=== PATIENT | female | born 1960 | race Caucasian/White ===

== ENCOUNTER 2016-07-07 12:55 | Day surgery (SDC) | payer MEDICAID ==
[2016-07-07] MEDS ORDERED: LIDOCAINE 1% 5 ML SDV ONE (13:12)
[2016-07-07] MEDS ORDERED: NS 500 ML IV SCH (13:15)
[2016-07-07] MEDS ORDERED: LIDOCAINE 1% 2 ML INJ ID PRN (13:15)
[2016-07-07] MEDS ORDERED: MIDAZOLAM 2 MG/2 ML VIAL ONE ×2 (13:54→14:12)
[2016-07-07] MEDS ORDERED: fentaNYL 100 MCG/2 ML INJ ONE (13:54)
--- NOTE | 2016-07-07 15:14 | GPN ---
[f rep st] PROCEDURE NOTE PROCEDURE: Gastroscopy with biopsy and colonoscopy. INDICATIONS: The patient is a 56-year-old female who presents for both routine colon cancer screeni and for a gastroscopy to evaluate for reflux. She is status post a M[place] fundoplication approxi mately 10 years ago. She has had recurrence of reflux symptoms and has been dependent on proton pum p inhibitors. DESCRIPTION OF PROCEDURE: After proper consent was obtained, the patient was placed in the left lat eral decubitus position, and received a total of 8 mg intravenous Versed, 100 mcg intravenous fentan yl. Video gastroscope was introduced through the mouth, down the esophagus, into the stomach, past the p ylorus, into the duodenum. Findings as follows: 1. An irregular Z-line at 34 cm. Biopsies were taken to rule out Lamb's. 2. Hiatal hernia sac, approximately 4 cm. 3. On retroversion, there was no evidence of any active Mulugeta wrap effect. 4. Antrum appears normal. Biopsies were taken to rule out H pylori. 5. Duodenum appears normal. At this point, the instrument was removed. The patient was repositioned, and the video colonoscope was introduced through the anus and rectum up the left colon across the transverse colon, then right colon, and the cecum. Findings as follows: 1. Mild left-sided diverticulosis. 2. No polyps, tumors or other lesions noted. 3. Ileocecal valve was identified and photographed. At this point, instrument was removed. Patient tolerated the procedure well, and was returned to [facility] recovery room in stable condition. RECOMMENDATION: 1. Patient should stay on her proton pump inhibitors and may need to consider repeat Mulugeta fundopl ication. 2. For colon cancer screening, next endoscopy in 10 years' time. /[id number]/MODL
== END 2016-07-07 15:15 | disposition home or self-care (01) ==
LOC: FSGY 12:55
PROVIDERS: ATTEND Internal Medicine Gastroenterology
PROC: 0DJD8ZZ Inspection of Lower Intestinal Tract, Via Natural or Artificial Opening Endoscopic (ICD-10-PCS; principal; 2016-07-07 14:00)
PROC: 0DB38ZX Excision of Lower Esophagus, Via Natural or Artificial Opening Endoscopic, Diagnostic (ICD-10-PCS; 2016-07-07 14:00)
DX: Z12.11 Encounter for screening for malignant neoplasm of colon (principal); K44.9 Diaphragmatic hernia without obstruction or gangrene; K91.89 Other postprocedural complications and disorders of digestive system; K21.9 Gastro-esophageal reflux disease without esophagitis; K22.9 Disease of esophagus, unspecified; K58.0 Irritable bowel syndrome with diarrhea; R10.10 Upper abdominal pain, unspecified; Z87.891 Personal history of nicotine dependence
CPT/HCPCS: J2250; J3010

== ENCOUNTER 2016-07-23 07:20 | Emergency (ER) | payer MEDICAID ==
[2016-07-23 07:25] VITALS: RESP 18
--- NOTE | 2016-07-23 07:49 | CPEKG ---
Heart Rate: 78 RR Interval: 769 P-R Interval: 208 QRSD Interval: 96 QT Interval: 376 QTC Interval: 429 P [place]: 56 QRS [place]: -45 T Wave [place]: 37 EKG Severity - OTHERWISE NORMAL ECG - EKG Impression: SINUS RHYTHM EKG Impression: VENTRICULAR PREMATURE COMPLEX EKG Impression: LEFT AXIS DEVIATION Electronically Signed By: Ninoska Villanueva 23-Jul-2016 13:18:13
[2016-07-23 07:56] LABS: % IMMATURE GRANULYOCYTES 0.2 % (0.0-1.1); ABSOLUTE IMMATURE GRANULOCYTES 0.01 10^3/uL (0.00-0.10); ADD DIFF? NO; ADD MORPH? NO; ADD SCAN? NO; ATYPICAL LYMPHOCYTE FLAG 0 (0-99); FRAGMENT RBC FLAG 0 (0-99); HEMATOCRIT 39.9 % (38.0-47.0); HEMOGLOBIN 13.8 g/dL (12.6-16.3); LEFT SHIFT FLG 0 (0-99); LIPEMIA HEMOLYSIS FLAG 90 (0-99); MEAN CELL HEMOGLOBIN 32.5 pg (27.9-34.1); MEAN CELL HEMOGLOBIN CONCENTR. 34.6 g/dL (32.4-36.7); MEAN CELL VOLUME 93.9 fL (81.5-99.8); MEAN PLATELET VOLUME 11.4 fL (8.7-11.7); PLATELET CLUMPS FLAG 0 (0-99); PLATELET COUNT 200 10^3/uL (150-400); RED BLOOD CELL COUNT 4.25 10^6/uL (4.18-5.33)
[2016-07-23 08:07] LABS: ANION GAP 10 mEq/L (8-16); CALCIUM 9.8 mg/dL (8.5-10.4); CARBON DIOXIDE 26 mEq/l (22-31); CHLORIDE 106 mEq/L (97-110); CREATININE 0.8 mg/dL (0.6-1.0); GLOMERULAR FILTRATION RATE > 60; GLUCOSE 85 mg/dL (70-100); SODIUM 142 mEq/L (134-144)
[2016-07-23 08:19] LABS: TROPONIN I < 0.012 ng/mL (0-0.034)
--- NOTE | 2016-07-23 08:25 | EDPHY ---
H & P Time Seen by Provider: 07/23/16 07:26 HPI/ROS: CHIEF COMPLAINT: Palpitations HISTORY OF PRESENT ILLNESS: 56-year-old female with a history of bronchospasm presents with palpitations. She has a history of PVCs and has intermittent palpitations related to the PVCs. Recently these episodes have increased in frequency. She had an upper respiratory infection 1 month ago and continues to have a dry cough. Associated with persistent chest tightness for 3 days, similar to prior asthma symptoms. She has an inhaler, but has been reluctant to use it because the inhaler increases the frequency of the PVCs. This morning she had an episode of left-sided mid back pain related to the cough, resolved now. No shortness of breath or fever. No exertional chest pain. REVIEW OF SYSTEMS: Constitutional: No fever, no chills Eyes: No visual changes ENT: No sore throat Respiratory: no shortness of breath Gastrointestinal: No nausea, no vomiting, no abdominal pain Genitourinary: no dysuria Musculoskeletal: No leg pain or swelling Skin: No rash Neurological: No headache, no weakness Psychiatric: No depression Past Medical/Surgical History: PVCs Bronchospasm related to a prior upper respiratory infection Social History: Smoking Status: Former smoker Physical Exam: General Appearance: Alert, pleasant Eyes: Pupils equal and round, no conjunctival pallor or injection ENT, Mouth: Mucous membranes moist Neck: Normal inspection Respiratory: Lungs are clear to auscultation, no wheezing Cardiovascular: Regular rate and rhythm, no murmur Gastrointestinal: Abdomen is soft and nontender Neurological: A&O, nonfocal, normal gait Skin: Warm and dry, no rash Extremities: Nontender, no pedal edema Psychiatric: Mood and affect normal Constitutional: Initial Vital Signs Temperature (C) 36.4 C 07/23/16 07:21 Heart Rate 90 07/23/16 07:21 Respiratory Rate 18 07/23/16 07:21 Blood Pressure 117/79 07/23/16 07:21 O2 Sat (%) 97 07/23/16 07:21 O2 Delivery Mode Room Air Allergies/Adverse Reactions: acetaminophen [From Percocet] Allergy (Verified 07/23/16 07:21) Vomiting oxycodone HCl [From Percocet] Allergy (Verified 07/23/16 07:21) Vomiting Home Medications: Medication Instructions Recorded Herbals/Supplements -Info Only 06/29/16 [facility] 06/29/16 Medical Decision Making - Diagnostics EKG Interpretation: EKG interpreted by me reveals normal sinus rhythm, rate 78, LAD, PVC, no ST or T segment changes. Imaging: Chest x-ray independently reviewed by me reveals no acute disease ED Course/Re-evaluation: This patient presents with atypical and prolonged (greater than 72 hrs) chest pain. Stat EKG reveals normal sinus rhythm, without evidence of ischemia. PVCs noted on the EKG and on cardiac monitoring. Patient is symptomatic with the PVCs. After careful consideration and evaluation, I find no evidence of acute coronary syndrome. The patient has no risk factors for coronary disease and normal studies. In addition, I feel that I can safely exclude pulmonary embolism, with normal vital signs, normal oxygen saturation and normal studies. In addition there is no evidence of pneumothorax, pneumonia, aortic dissection. Differential Diagnosis: This patient presents with atypical chest pain. After careful consideration and evaluation, I find no evidence of acute coronary syndrome. The patient has no risk factors for coronary disease, normal EKG and normal studies. In addition, I feel that I can safely exclude pulmonary embolism, with normal vital signs, normal oxygen saturation and normal studies. In addition there is no evidence of pneumothorax, pneumonia, aortic dissection. - Data Points Laboratory Results: Laboratory Results 07/23/16 07:40 07/23/16 07:40 Medications Given: Discontinued Medications Sodium Chloride (Ns) 1,000 mls @ 0 mls/hr IV ONCE ONE PRN Reason: Wide Open Stop: 07/23/16 08:29 Last Admin: 07/23/16 08:43 Dose: 1,000 mls Departure - Departure Disposition: Home, Routine, Self-Care Clinical Impression: PVCs (premature ventricular contractions) Acute bronchitis Qualifiers: Bronchitis organism: unspecified organism Qualified Code(s): J20.9 - Acute bronchitis, unspecified Condition: Good Instructions: Acute Bronchitis (ED) Referrals: Contreras Garcia MD [Primary Care Provider] - 2-3 days, if not improved
[2016-07-23] MEDS ORDERED: NS 1,000 ML IV ONE (08:28)
[2016-07-23 10:10] VITALS: BP 121/84; PULSE 66; TEMP 97.9; O2SAT 98
== END 2016-07-23 10:09 | disposition home or self-care (01) ==
DX: I49.3 Ventricular premature depolarization (principal); J20.9 Acute bronchitis, unspecified; Z87.891 Personal history of nicotine dependence

== ENCOUNTER → 2018-02-25 | Outpatient (CLI) | payer MEDICAID | LOC: FIMAGING 13:38 | PROVIDERS: ATTEND Orthopaedic Surgery | DX: S83.241A Other tear of medial meniscus, current injury, right knee, initial encounter (principal); S83.281A Other tear of lateral meniscus, current injury, right knee, initial encounter; S83.411A Sprain of medial collateral ligament of right knee, initial encounter; M24.10 Other articular cartilage disorders, unspecified site; M76.891 Other specified enthesopathies of right lower limb, excluding foot; M25.461 Effusion, right knee ==